=== PATIENT | male | born 1940 | race Caucasian/White ===

== ENCOUNTER 2019-01-10 13:04 | Emergency (ER) | payer MEDICARE, OTHER ==
[~2019-01-10 13:04] MED LIST: ASPI-715 PO; ATR10 PO; HCTZ25 PO; LOR5/325 PO; METO25TA91 PO; MULT1CAP59 PO; OMEP-153 PO
[2019-01-10 13:14] VITALS: BP 128/76
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
--- NOTE | 2019-01-10 13:39 | EKG ---
FACILITY: [facility] - [place] PATIENT NAME: RODERICK DE SANTIAGO : [id number] MR: [id number] V: [id number] EXAM DATE: ORDERING PHYSICIAN: CHERIE SANDOVAL TECHNOLOGIST: Test Reason : chest pressure Blood Pressure : / mmHG Vent. Rate : 054 BPM Atrial Rate : 054 BPM P-R Int : 232 ms QRS Dur : 110 ms QT Int : 460 ms P-R-T Axes : 033 -31 -02 degrees QTc Int : 436 ms Sinus bradycardia with 1st degree AV block Left axis deviation Abnormal ECG No previous ECGs available Confirmed by Andrey Lombardo ([id number]) on 01/10/2019 7:28:00 PM Referred By: Confirmed By:Andrey Frazier
[2019-01-10 13:52] LABS: PLATELET COUNT, AUTOMATED 263 K/uL (150-450)
[2019-01-10] MEDS ORDERED: NS(*) 0.9% 500 ML BAG 500 ML IV ONE (14:05)
--- NOTE | 2019-01-10 14:44 | RADIOLOGY IMAGING REPORT ---
FACILITY: [facility] PATIENT NAME: Renato Carvalho : 1940 MR: [id number] V: [id number] EXAM DATE: ORDERING PHYSICIAN: CHERIE SANDOVAL TECHNOLOGIST: Location: [facility] Patient: Renato Carvalho : 1940 Visit/Account:[id number] Date of Sevice: 01/10/2019 Exam type: CHEST PA LAT History: EKG showed possible heart attack one month ago Comparison: None. Findings: The lungs are free of acute effusions, infiltrates or edema. Cardiac silhouette is normal in size. There is localized eventration of the right hemidiaphragm. There are postsurgical changes lower cerv ical spine. IMPRESSION: 1. No acute cardiopulmonary process is seen Report Dictated By: Ana Servin MD at 01/10/2019 2:06 PM Report E-Signed By: Ana Servin MD at 01/10/2019 2:07 PM WSN:[email or web address]
== END 2019-01-10 15:50 | disposition home or self-care (01) ==
LOC: ER 13:17
DX: R06.02 Shortness of breath (principal)
CPT/HCPCS: 71046; 83880; 84484; 85025; 93005; 99284; J7040; 82040; 82247; 82310; 82374; 82435; 82565; 82947; 84075; 84132; 84155; 84295; 84450; 84460; 84520

== ENCOUNTER → 2019-01-22 | Outpatient (CLI) | payer MEDICARE, OTHER ==
--- NOTE | 2019-01-22 16:55 | RT STRESS TEST REPORT ---
FACILITY: [facility] PATIENT NAME: RODERICK DE SANTIAGO : [id number] MR: [id number] V: [id number] EXAM DATE: ORDERING PHYSICIAN: AMAYA NIÑO TECHNOLOGIST: Bruno Acquisition Time: 2019-01-22 14:45:13 Total Exercise Time: 00:05:59 Test Indications: Chest Discomfort Medications: Toporol HCTZ Atorvastatin Baby ASA Prylosec Protocol: MARYJANE 2 Max HR: 157 BPM 112% of Pred: 140 BPM Max BP: 150/103 mmHG Max Work Load: 7.[address] depression in single lead on one single time point. Remained asymptomatic throughtout test, occasional PVC, no significant arrhythmia. Stopped due to leg fatigue and SOB. Negative stress EKG. Confirmed by Andrey Lombardo ([id number]) on 01/22/2019 4:54:57 PM Referred By: Comfort Niño Overread By: Andrey Frazier
== END ==
LOC: RESP 08:07
PROVIDERS: ATTEND Nurse Practitioner Family
DX: R07.89 Other chest pain (principal)
CPT/HCPCS: 93017